=== PATIENT | female | born 1975 | race Caucasian/White ===

== ENCOUNTER 2017-07-24 17:45 | Emergency (ER) | payer OTHER, MEDICAID ==
[2017-07-24] MEDS ORDERED: ULTRAM PO ONE (20:54)
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
[2017-07-24 22:38] VITALS: BP 147/98
== END 2017-07-24 22:20 | disposition home or self-care (01) ==
LOC: ED 17:45
DX: S16.1XXA Strain of muscle, fascia and tendon at neck level, initial encounter (principal); V49.49XA Driver injured in collision with other motor vehicles in traffic accident, initial encounter; Y93.9 Activity, unspecified; Y92.9 Unspecified place or not applicable; Y99.9 Unspecified external cause status
CPT/HCPCS: 72040

== ENCOUNTER 2018-08-05 08:24 | Emergency (ER) | payer MEDICAID, OTHER ==
[2018-08-05 08:29] VITALS: BP 151/98
[2018-08-05] MEDS ORDERED: MOTRIN PO ONE (08:39)
--- NOTE | 2018-08-05 08:48 | Emergency Department Report ---
ED Lower Extremity HPI - General Chief Complaint: Extremity Injury, Lower Stated Complaint: BOTTOM FOOT PAIN Time Seen by Provider: 08/05/18 08:39 Source: patient Mode of arrival: Ambulatory Limitations: No Limitations - History of Present Illness Initial Comments: This is a 42-year-old female nontoxic, well nourished in appearance, no acute signs of distress presents to the ED with c/o of right plantar foot pain 2 days. 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 Patient denies any trauma. Patient denies any numbness, tingling, fever, chills, nausea, vomiting, chest pain, shortness of breath, headache, stiff neck. Patient denies any joint swelling or joint redness. Patient denies decreased range of motion. Patient stated has decreased gait due to pain. Patient denies any allergies or significant past medical history. MD Complaint: foot injury -: days(s) (2) Injury: Foot: Right Place: work Severity: mild Severity scale (0 -10): 3 Improves With: immobilization Worsens With: palpation Associated Symptoms: ambulatory. denies: snap/pop sensation, swelling, numbness , tingling, unable to bear weight, able to partially bear weight - Related Data Home Medications Medication Instructions Recorded Confirmed Last Taken Acetaminophen [Tylenol] 325 mg MO Q4HR PRN 09/01/13 09/01/13 Unknown Ibuprofen [Motrin] 200 mg PO Q6H PRN 09/01/13 09/01/13 Unknown Sulfamethoxazole/Trimethoprim 1 each PO BID 09/01/13 09/01/13 Unknown [Bactrim DS] Previous Rx's Medication Instructions Recorded Last Taken Type Cyclobenzaprine [Flexeril] 10 mg PO TID PRN #30 tablet 07/24/17 Unknown Rx Naproxen [Naprosyn] 500 mg PO BID PRN #30 tablet 07/24/17 Unknown Rx Ibuprofen [Motrin] 600 mg PO Q8H PRN #30 tablet 08/05/18 Unknown Rx Allergies Allergy/AdvReac Type Severity Reaction Status Date / Time No Known Allergies Allergy Verified 08/05/18 08:28 ED Review of Systems ROS: Stated complaint: BOTTOM FOOT PAIN Other details as noted in HPI Constitutional: denies: chills, fever Eyes: denies: eye pain, eye discharge, vision change ENT: denies: ear pain, throat pain Respiratory: denies: cough, shortness of breath, wheezing Cardiovascular: denies: chest pain, palpitations Endocrine: no symptoms reported Gastrointestinal: denies: abdominal pain, nausea, diarrhea Genitourinary: denies: urgency, dysuria, discharge Musculoskeletal: denies: back pain, joint swelling, arthralgia Skin: denies: rash, lesions Neurological: denies: headache, weakness, paresthesias Psychiatric: denies: anxiety, depression Hematological/Lymphatic: denies: easy bleeding, easy bruising ED Past Medical Hx - Past Medical History Previous Medical History?: Yes Hx Psychiatric Treatment: Yes (schizophrenia) - Surgical History Past Surgical History?: No - Social History Smoking Status: Never Smoker Substance Use Type: None - Medications Home Medications: Home Medications Medication Instructions Recorded Confirmed Last Taken Type Acetaminophen [Tylenol] 325 mg MO Q4HR PRN 09/01/13 09/01/13 Unknown History Ibuprofen [Motrin] 200 mg PO Q6H PRN 09/01/13 09/01/13 Unknown History Sulfamethoxazole/Trimethoprim 1 each PO BID 09/01/13 09/01/13 Unknown History [Bactrim DS] Cyclobenzaprine [Flexeril] 10 mg PO TID PRN #30 tablet 07/24/17 Unknown Rx Naproxen [Naprosyn] 500 mg PO BID PRN #30 tablet 07/24/17 Unknown Rx Ibuprofen [Motrin] 600 mg PO Q8H PRN #30 tablet 08/05/18 Unknown Rx ED Physical Exam - General Limitations: No Limitations General appearance: alert, in no apparent distress - Head Head exam: Present: atraumatic, normocephalic - Eye Eye exam: Present: normal appearance - ENT ENT exam: Present: mucous membranes moist - Neck Neck exam: Present: normal inspection - Respiratory Respiratory exam: Present: normal lung sounds bilaterally. Absent: respiratory distress - Cardiovascular Cardiovascular Exam: Present: regular rate, normal rhythm. Absent: systolic murmur, diastolic murmur, rubs, gallop - GI/Abdominal GI/Abdominal exam: Present: soft, normal bowel sounds - Extremities Exam Extremities exam: Present: normal inspection, full ROM, tenderness, normal capillary refill. Absent: joint swelling - Expanded Lower Extremity Exam Right Hip exam: Present: normal inspection, full ROM. Absent: tenderness, swelling Upper Leg exam: Present: normal inspection, full ROM. Absent: tenderness, swelling Knee exam: Present: normal inspection, full ROM. Absent: tenderness, swelling Lower Leg exam: Present: normal inspection, full ROM. Absent: tenderness, swelling Ankle exam: Present: normal inspection, full ROM. Absent: tenderness, swelling Foot/Toe exam: Present: normal inspection, full ROM, tenderness. Absent: swelling, abrasion, laceration, ecchymosis, deformity, crepidus, dislocation, erythema, amputation, puncture wound, foreign body, calcaneal tenderness, tenderness at base of 5th metatarsal, nail avulsion, subungual hematoma Neuro vascular tendon exam: Present: no vascular compromise. Absent: pulse deficit, abnormal cap refill, motor deficit, sensory deficit, tendon deficit, extremity cold to touch, pallor, abnormal 2-point discrimination, decreased fine /light touch, foot drop, peroneal nerve deficit, significant pain with passive ROM of distal joint Gait: Positive: observed and normal 1 - pain here - Back Exam Back exam: Present: normal inspection, full ROM - Neurological Exam Neurological exam: Present: alert, oriented X3, normal gait - Psychiatric Psychiatric exam: Present: normal affect, normal mood - Skin Skin exam: Present: warm, dry, intact, normal color. Absent: rash ED Course Vital Signs 08/05/18 08:28 Temperature 98.9 F Pulse Rate 88 Respiratory 16 Rate Blood Pressure 151/98 O2 Sat by Pulse 98 Oximetry - Reevaluation(s) Reevaluation #1: 08/05/18 08:46 Patient is speaking in full sentences with no signs of distress noted. ED Lower Extremity MDM - Medical Decision Making This is a 42-year-old female that presents with right plantar fasciitis. Patient is stable and was examined by me. I referred patient to an orthopedic doctor for further evaluation for possible MRI. X-ray has been obtained and dictated by the radiologist. Patient is notified of the x-ray report with noted by the patient. Patient does have normal gait with no tenderness and no joint swelling. No ecchymosis. no joint redness or swelling. Not warm to touch. No signs of cellulites present. Patient was instructed to RICE therapy. Patient received Motrin for pain. Patient is discharged with Motrin. At time of discharge, the patient does not seem toxic or ill in appearance. No acute signs of distress noted. Patient agrees to discharge treatment plan of care. No further questions noted by the patient. Critical care attestation.: If time is entered above; I have spent that time in minutes in the direct care of this critically ill patient, excluding procedure time. ED Disposition Clinical Impression: Plantar fasciitis, right Disposition: [id number]-01 TO HOME OR SELFCARE Is pt being admited?: No Does the pt Need Aspirin: No Condition: Stable Instructions: Plantar Fasciitis (ED), RICE Therapy (ED) Additional Instructions: Follow-up with a orthopedic doctor in 3-5 days or if symptoms worsen and continue return to emergency room as soon as possible. Prescriptions: Ibuprofen [Motrin] 600 mg PO Q8H PRN #30 tablet PRN Reason: Pain Referrals: PRIMARY CAREMD [Primary Care Provider] - 3-5 Days KIKE VENTURA MD [Staff Physician] - 3-5 Days [facility] [Outside] - 3-5 Days Forms: Work/School Release Form(ED)
--- NOTE | 2018-08-05 09:18 | XRay Report ---
RIGHT FOOT, 3 views: History: Right foot pain. The bony architecture is intact. Bony alignment is normal. No soft tissue abnormalities are seen. The joint spaces appear preserved. A moderate plantar spur is identified. IMPRESSION: Plantar spur.
== END 2018-08-05 09:38 | disposition home or self-care (01) ==
LOC: ED 08:24
DX: M72.2 Plantar fascial fibromatosis (principal); F20.9 Schizophrenia, unspecified
CPT/HCPCS: 99283

== ENCOUNTER 2019-06-23 11:18 | Emergency (ER) | payer MEDICAID ==
[2019-06-23 11:27] VITALS: BP 164/89
--- NOTE | 2019-06-23 11:30 | Emergency Department Report ---
ED Extremity Problem HPI - General Chief complaint: Pain General Stated complaint: PAIN ON SIDE/LEGS Time Seen by Provider: 06/23/19 11:24 Source: patient Mode of arrival: Ambulatory Limitations: No Limitations - History of Present Illness Initial comments: pt is a 43 yo female who presents with right upper arm pain and left posterior pain that began two weeks ago. 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 she denies any fall or injury. denies any previous injury. denies any numbness or weakness. she denies any other symptoms. has been taking tylenol with some relief. PMHx schizophrenia. no allergies to medications. no SI, HI, no hallucinations. - Related Data Home Medications Medication Instructions Recorded Confirmed Last Taken Acetaminophen [Tylenol] 325 mg NE Q4HR PRN 09/01/13 09/01/13 Unknown Ibuprofen [Motrin] 200 mg PO Q6H PRN 09/01/13 09/01/13 Unknown Sulfamethoxazole/Trimethoprim 1 each PO BID 09/01/13 09/01/13 Unknown [Bactrim DS] Previous Rx's Medication Instructions Recorded Last Taken Type Cyclobenzaprine [Flexeril] 10 mg PO TID PRN #30 tablet 07/24/17 Unknown Rx Ibuprofen [Motrin] 600 mg PO Q8H PRN #30 tablet 08/05/18 Unknown Rx Naproxen [Naprosyn TAB] 500 mg PO BID PRN #14 tablet 06/23/19 Unknown Rx Allergies Allergy/AdvReac Type Severity Reaction Status Date / Time No Known Allergies Allergy Verified 06/23/19 11:19 ED Review of Systems ROS: Stated complaint: PAIN ON SIDE/LEGS Other details as noted in HPI Comment: All other systems reviewed and negative ED Past Medical Hx - Past Medical History Hx Psychiatric Treatment: Yes (schizophrenia) - Social History Smoking Status: Never Smoker Substance Use Type: None - Medications Home Medications: Home Medications Medication Instructions Recorded Confirmed Last Taken Type Acetaminophen [Tylenol] 325 mg NE Q4HR PRN 09/01/13 09/01/13 Unknown History Ibuprofen [Motrin] 200 mg PO Q6H PRN 09/01/13 09/01/13 Unknown History Sulfamethoxazole/Trimethoprim 1 each PO BID 09/01/13 09/01/13 Unknown History [Bactrim DS] Cyclobenzaprine [Flexeril] 10 mg PO TID PRN #30 tablet 07/24/17 Unknown Rx Ibuprofen [Motrin] 600 mg PO Q8H PRN #30 tablet 08/05/18 Unknown Rx Naproxen [Naprosyn TAB] 500 mg PO BID PRN #14 tablet 06/23/19 Unknown Rx ED Physical Exam - General Limitations: No Limitations General appearance: alert, in no apparent distress - Head Head exam: Present: atraumatic, normocephalic - Eye Eye exam: Present: normal appearance - ENT ENT exam: Present: mucous membranes moist - Respiratory Respiratory exam: Present: normal lung sounds bilaterally. Absent: respiratory distress, wheezes, rales, rhonchi, stridor, accessory muscle use, decreased breath sounds, prolonged expiratory - Cardiovascular Cardiovascular Exam: Present: regular rate, normal rhythm, normal heart sounds. Absent: systolic murmur, diastolic murmur, rubs, gallop - Extremities Exam Extremities exam: Present: other (FROM of the BUE with no difficulty, 2+ radial pulse, sensation intact, mild TTP of the right bicep, no ecchymosis, full flexion without difficulty, FROM of the BLE without difficulty, 2+ distal pulses, sensation intact, mild TTP of the left posterior thigh directly distal to the left gluteus arely, no edema of the BLE, no erythema, no increased warmth) - Neurological Exam Neurological exam: Present: alert, oriented X3 - Psychiatric Psychiatric exam: Present: normal affect, normal mood - Skin Skin exam: Present: warm, dry, intact ED Course Vital Signs 06/23/19 11:24 Temperature 98.7 F Pulse Rate 84 Respiratory 18 Rate Blood Pressure 164/89 O2 Sat by Pulse 98 Oximetry ED Medical Decision Making - Medical Decision Making pt is a 43 yo female who presents with right upper arm pain and left posterior pain that began two weeks ago. 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 she denies any fall or injury. denies any previous injury. denies any numbness or weakness. she denies any other symptoms. has been taking tylenol with some relief. PMHx schizophrenia. no allergies to medications. no SI, HI, no hallucinations. on exam: FROM of the BUE with no difficulty, 2+ radial pulse, sensation intact, mild TTP of the right bicep, no ecchymosis, full flexion without difficulty, FROM of the BLE without difficulty, 2+ distal pulses, sensation intact, mild TTP of the left posterior thigh directly distal to the left gluteus arely, no edema of the BLE, no erythema, no increased warmth. pt given prescription for naproxen. advised pt to please take medication as prescribed as needed. may use ice, rest, heating pad, epsom salt bath. follow up with a primary care clinic in the next 2-3 days. return to the emergency room for any new or worsening symptoms. - Differential Diagnosis arthritis, muscle aches, strain, sprain Critical care attestation.: If time is entered above; I have spent that time in minutes in the direct care of this critically ill patient, excluding procedure time. ED Disposition Clinical Impression: Right arm pain, Left thigh pain Disposition: TO HOME OR SELFCARE Is pt being admited?: No Does the pt Need Aspirin: No Condition: Stable Instructions: Arthralgia (ED) Additional Instructions: please take medication as prescribed as needed. may use ice, rest, heating pad, epsom salt bath. follow up with a primary care clinic in the next 2-3 days. return to the emergency room for any new or worsening symptoms. Prescriptions: Naproxen [Naprosyn TAB] 500 mg PO BID PRN #14 tablet PRN Reason: Pain Referrals: ALISON KENDRICK [Primary Care Provider] - 3-5 Days Forms: Work/School Release Form(ED) Time of Disposition: 11:55 Print Language: CROATIAN
== END 2019-06-23 12:04 | disposition home or self-care (01) ==
LOC: ED 11:18
DX: M79.621 Pain in right upper arm (principal); M79.645 Pain in left finger(s); F20.9 Schizophrenia, unspecified; Z79.1 Long term (current) use of non-steroidal anti-inflammatories (NSAID); Z79.899 Other long term (current) drug therapy; X50.0XXA Overexertion from strenuous movement or load, initial encounter; Y93.89 Activity, other specified; Y92.69 Other specified industrial and construction area as the place of occurrence of the external cause; Y99.8 Other external cause status
CPT/HCPCS: 99282

== ENCOUNTER 2020-02-16 11:04 | Emergency (ER) | payer MEDICAID ==
[2020-02-16 11:20] VITALS: BP 145/101
--- NOTE | 2020-02-16 11:57 | XRay Report ---
RIGHT HAND HISTORY: Trauma and pain. COMPARISON: None. TECHNIQUE: 2 views of the right hand were obtained. FINDINGS: Bones: A comminuted mildly displaced fracture of the proximal diaphysis of the fourth metacarpal. Joint spaces: Maintained. Soft tissues: No significant abnormality. Additional findings: None. IMPRESSION: 1. An acute traumatic closed mildly displaced comminuted fracture of the fourth metacarpal. Signer Name: Satish Diaz MD Signed: 02/16/2020 11:52 AM Workstation Name: [id number]
[2020-02-16] MEDS ORDERED: IBUPROFEN 800 MG TAB PO ONE (14:38)
--- NOTE | 2020-02-16 15:29 | Emergency Department Report ---
ED Upper Extremity Inj HPI - General Chief Complaint: Extremity Injury, Upper Stated Complaint: SWOLLEN/PAIN HAND Time Seen by Provider: 02/16/20 12:43 Source: patient Mode of arrival: Ambulatory Limitations: No Limitations - History of Present Illness Initial Comments: This is a 44-year-old female nontoxic, well nourished in appearance, no acute signs of distress presents to the ED with c/o of right hand pain 1 day. Patient stated that she hit a chair. Patient denies any other trauma. Patient denies any numbness, tingling, fever, chills, nausea, vomiting, chest pain, shortness of breath, headache, stiff neck. Patient denies any joint swelling or joint redness. Patient has some decreased range of motion. Patient denies any allergies or significant past medical history. MD Complaint: Injury to:: right, hand -: days(s) Other Extremity Injury: Hand: Right Severity scale (0 -10): 8 Improves With: immobilization Worsens With: movement of extremity Associated Symptoms: denies other symptoms. denies: weakness, numbness, neck pain, suspects foreign body, nausea/vomiting, heard/felt popping sensat - Related Data Home Medications Medication Instructions Recorded Confirmed Last Taken Acetaminophen [Tylenol] 325 mg [place] Q4HR PRN 09/01/13 09/01/13 Unknown Ibuprofen [Motrin] 200 mg PO Q6H PRN 09/01/13 09/01/13 Unknown Sulfamethoxazole/Trimethoprim 1 each PO BID 09/01/13 09/01/13 Unknown [Bactrim DS] Previous Rx's Medication Instructions Recorded Last Taken Type Cyclobenzaprine [Flexeril] 10 mg PO TID PRN #30 tablet 07/24/17 Unknown Rx Ibuprofen [Motrin] 600 mg PO Q8H PRN #30 tablet 08/05/18 Unknown Rx Naproxen [Naprosyn TAB] 500 mg PO BID PRN #14 tablet 06/23/19 Unknown Rx Ibuprofen [Motrin] 600 mg PO Q8H PRN #15 tablet 02/16/20 Unknown Rx Allergies Allergy/AdvReac Type Severity Reaction Status Date / Time No Known Allergies Allergy Verified 06/23/19 11:19 ED Review of Systems ROS: Stated complaint: SWOLLEN/PAIN HAND Other details as noted in HPI Constitutional: denies: chills, fever Eyes: denies: eye pain, eye discharge, vision change ENT: denies: ear pain, throat pain Respiratory: denies: cough, shortness of breath, wheezing Cardiovascular: denies: chest pain, palpitations Endocrine: no symptoms reported Gastrointestinal: denies: abdominal pain, nausea, diarrhea Genitourinary: denies: urgency, dysuria, discharge Musculoskeletal: denies: back pain, joint swelling, arthralgia Skin: denies: rash, lesions Neurological: denies: headache, weakness, paresthesias Psychiatric: denies: anxiety, depression Hematological/Lymphatic: denies: easy bleeding, easy bruising ED Past Medical Hx - Past Medical History Previous Medical History?: Yes Hx Psychiatric Treatment: Yes (schizophrenia) - Surgical History Past Surgical History?: No - Social History Smoking Status: Never Smoker Substance Use Type: None - Medications Home Medications: Home Medications Medication Instructions Recorded Confirmed Last Taken Type Acetaminophen [Tylenol] 325 mg [place] Q4HR PRN 09/01/13 09/01/13 Unknown History Ibuprofen [Motrin] 200 mg PO Q6H PRN 09/01/13 09/01/13 Unknown History Sulfamethoxazole/Trimethoprim 1 each PO BID 09/01/13 09/01/13 Unknown History [Bactrim DS] Cyclobenzaprine [Flexeril] 10 mg PO TID PRN #30 tablet 07/24/17 Unknown Rx Ibuprofen [Motrin] 600 mg PO Q8H PRN #30 tablet 08/05/18 Unknown Rx Naproxen [Naprosyn TAB] 500 mg PO BID PRN #14 tablet 06/23/19 Unknown Rx Ibuprofen [Motrin] 600 mg PO Q8H PRN #15 tablet 02/16/20 Unknown Rx ED Physical Exam - General Limitations: No Limitations General appearance: alert, in no apparent distress - Head Head exam: Present: atraumatic, normocephalic - Extremities Exam Extremities exam: Present: normal inspection, full ROM, tenderness, normal capillary refill. Absent: joint swelling - Expanded Upper Extremity Exam Right General: Present: normal inspection Shoulder Exam: Present: normal inspection, full ROM. Absent: tenderness, swelling Upper Arm exam: Present: normal inspection, full ROM. Absent: tenderness, swelling Elbow exam: Present: normal inspection, full ROM. Absent: tenderness, swelling Forearm Wrist exam: Present: normal inspection, full ROM. Absent: tenderness, swelling, abrasion, laceration, ecchymosis, deformity, crepidus, dislocation, erythema, tenderness over anatomical snuff box, pain with axial thumb loading Hand Wrist exam: Present: normal inspection, full ROM, tenderness, swelling, ecchymosis. Absent: abrasion, laceration, deformity, crepidus, dislocation, erythema, amputation, nail avulsion, subungual hematoma Vascular: Present: vascular compromise, normal capillary refill - Back Exam Back exam: Present: normal inspection, full ROM. Absent: tenderness, CVA tenderness (R), CVA tenderness (L), muscle spasm, paraspinal tenderness, vertebral tenderness, rash noted - Neurological Exam Neurological exam: Present: alert, oriented X3, normal gait - Psychiatric Psychiatric exam: Present: normal affect, normal mood - Skin Skin exam: Present: warm, dry, intact, normal color. Absent: rash ED Course Vital Signs 02/16/20 11:17 Temperature 97.6 F Pulse Rate 81 Respiratory 18 Rate Blood Pressure 145/101 O2 Sat by Pulse 99 Oximetry - Reevaluation(s) Reevaluation #1: 02/16/20 15:35 Patient is speaking in full sentences with no signs of distress noted. ED Medical Decision Making - Medical Decision Making This is a 44-year-old female that presents with right fourth metacarpal fracture. Patient is stable and was examined by me. I referred patient to an orthopedic doctor for further evaluation for possible MRI. X-ray has been obtained and dictated by the radiologist. Patient is notified of the x-ray report with noted by the patient. Patient received a right ulnar gutter splint. Patient also received a sling. Post splint assessment: neurovasular intact; normal cap refill <2 second; normal sensation; denies decreaed sensation; normal ROM of digits. Patient was instructed to RICE therapy. Patient received Motrin for pain. Patient is discharged with Motrin. At time of discharge, the patient does not seem toxic or ill in appearance. No acute signs of distress noted. Patient agrees to discharge treatment plan of care. No further questions noted by the patient. Critical care attestation.: If time is entered above; I have spent that time in minutes in the direct care of this critically ill patient, excluding procedure time. ED Disposition Clinical Impression: Fracture of fourth metacarpal bone of right hand Qualifiers: Encounter type: initial encounter Fracture type: closed Metacarpal location: unspecified portion of metacarpal Fracture alignment: displaced Qualified Code(s): S62.304A - Unspecified fracture of fourth metacarpal bone, right hand, initial encounter for closed fracture Disposition: TO HOME OR SELFCARE Is pt being admited?: No Does the pt Need Aspirin: No Condition: Stable Instructions: Hand Fracture (ED), RICE Therapy (ED) Additional Instructions: Follow-up with a orthopedic doctor in 3-5 days or if symptoms worsen and continue return to emergency room as soon as possible. Prescriptions: Ibuprofen [Motrin] 600 mg PO Q8H PRN #15 tablet PRN Reason: Pain Referrals: PRIMARY CAREMD [Referring] - 3-5 Days KIKE VENTURA MD [Staff Physician] - 3-5 Days [facility] [Provider Group] - 3-5 Days Forms: Work/School Release Form(ED)
== END 2020-02-16 16:12 | disposition home or self-care (01) ==
LOC: ED 11:04
DX: S62.304A Unspecified fracture of fourth metacarpal bone, right hand, initial encounter for closed fracture (principal); F20.9 Schizophrenia, unspecified; Z79.899 Other long term (current) drug therapy; W22.8XXA Striking against or struck by other objects, initial encounter; Y93.89 Activity, other specified; Y92.89 Other specified places as the place of occurrence of the external cause; Y99.8 Other external cause status

== ENCOUNTER 2020-09-14 10:27 | Emergency (ER) | payer MEDICAID ==
[2020-09-14 10:40] VITALS: BP 155/89
--- NOTE | 2020-09-14 10:46 | Event Note ---
ED Screening Note Date of service: 09/14/20 Time: 10:45 ED Screening Note: Patient complains of left-sided chest pain x9 days Denies heart history History of schizophrenia This initial assessment/diagnostic orders/clinical plan/treatment(s) is/are subject to change based on patients health status, clinical progression and re- assessment by fellow clinical providers in the ED. Further treatment and workup at subsequent clinical providers discretion. Patient/guardian urged not to elope from the ED as their condition may be serious if not clinically assessed and managed. Initial orders include: Chest x-ray EKG Labs
--- NOTE | 2020-09-14 11:30 | XRay Report ---
CHEST 2 VIEWS INDICATION / CLINICAL INFORMATION: Chest Pain. COMPARISON: None available. FINDINGS: SUPPORT DEVICES: None. HEART / MEDIASTINUM: No significant abnormality. LUNGS / PLEURA: No significant pulmonary or pleural abnormality. No pneumothorax. ADDITIONAL FINDINGS: No significant additional findings. IMPRESSION: 1. No acute findings. Signer Name: Abe Cottrell MD Signed: 09/14/2020 11:25 AM Workstation Name: [id number]
[2020-09-14 13:37] LABS: Basophils # (Auto) 0.1 K/mm3 (0.0-0.1); Basophils % (Auto) 0.9 % (0.0-1.8); Eosinophils # (Auto) 0.1 K/mm3 (0.0-0.4); Eosinophils % (Auto) 1.1 % (0.0-4.3); Hematocrit 39.6 % (30.3-42.9); Hemoglobin 12.8 gm/dl (10.1-14.3); Lymphocytes # (Auto) 2.1 K/mm3 (1.2-5.4); Lymphocytes % (Auto) 32.1 % (13.4-35.0); Mean Corpuscular HGB Conc 32 % (30-34); Mean Corpuscular Volume 94 fl (79-97); Monocytes # (Auto) 0.4 K/mm3 (0.0-0.8); Monocytes % (Auto) 6.2 % (0.0-7.3); Platelet Count 281 K/mm3 (140-440); Red Blood Count 4.23 M/mm3 (3.65-5.03); Red Cell Distribution Width 14.1 % (13.2-15.2)
[2020-09-14 13:55] LABS: Alanine Aminotransferase 11 units/L (7-56); Albumin 4.3 g/dL (3.9-5); BUN/Creatinine Ratio 9; Blood Urea Nitrogen 8 mg/dL (7-17); Calcium 9.5 mg/dL (8.4-10.2); Hemolysis Index 11
[2020-09-14] MEDS ORDERED: ALUM-MAG HYDROXIDE-SIMETHICONE 200-200-20MG/5ML ORAL LIQD 30 ML PO ONE (20:00)
[2020-09-14] MEDS ORDERED: IBUPROFEN 800 MG TAB PO ONE (20:00)
[2020-09-14] MEDS ORDERED: LIDOCAINE VISCOUS 2% 15 ML ORAL LIQD PO ONE (20:00)
--- NOTE | 2020-09-14 21:04 | Emergency Department Report ---
ED Chest Pain HPI - General Chief Complaint: Chest Pain Stated Complaint: CHEST PAIN COMES AND GOES Time Seen by Provider: 09/14/20 10:45 Source: patient Mode of arrival: Ambulatory Limitations: No Limitations - History of Present Illness Initial Comments: Patient 44-year-old -[place] female who presents for left lateral chest wall pain x4 days intermittently. Patient denies dizziness, headache, nausea vomiting, shortness of breath, wheezing, patient denies history of cardiac disease. Patient does have history of obesity and schizophrenia. Pain is described as 4/10. Pain exacerbated by palpation and movement. Pain is relieved by nothing tried. Patient denies smoking or other risk factors. MD Complaint: chest pain Severity scale (0 -10): 3 - Related Data Home Medications Medication Instructions Recorded Confirmed Last Taken Acetaminophen [Tylenol] 325 mg [place] Q4HR PRN 09/01/13 09/01/13 Unknown Ibuprofen [Motrin] 200 mg PO Q6H PRN 09/01/13 09/01/13 Unknown Sulfamethoxazole/Trimethoprim 1 each PO BID 09/01/13 09/01/13 Unknown [Bactrim DS] Previous Rx's Medication Instructions Recorded Last Taken Type Cyclobenzaprine [Flexeril] 10 mg PO TID PRN #30 tablet 07/24/17 Unknown Rx Ibuprofen [Motrin] 600 mg PO Q8H PRN #30 tablet 08/05/18 Unknown Rx Naproxen [Naprosyn TAB] 500 mg PO BID PRN #14 tablet 06/23/19 Unknown Rx Ibuprofen [Motrin] 600 mg PO Q8H PRN #15 tablet 02/16/20 Unknown Rx Famotidine [Pepcid] 20 mg PO BID #30 tablet 09/14/20 Unknown Rx Ibuprofen [Motrin 800 MG tab] 800 mg PO Q8HR PRN #30 tablet 09/14/20 Unknown Rx Allergies Allergy/AdvReac Type Severity Reaction Status Date / Time No Known Allergies Allergy Verified 06/23/19 11:19 Heart Score - HEART Score History: Slightly suspicious EKG: Normal Age: 45-65 Risk factors: No known risk factors Troponin: < normal limit HEART Score: 1 ED Review of Systems ROS: Stated complaint: CHEST PAIN COMES AND GOES Other details as noted in HPI Constitutional: denies: chills, fever Eyes: denies: eye pain, eye discharge, vision change ENT: denies: ear pain, throat pain Respiratory: denies: cough, shortness of breath, wheezing Cardiovascular: chest pain. denies: palpitations Endocrine: no symptoms reported Gastrointestinal: denies: abdominal pain, nausea, diarrhea Genitourinary: denies: urgency, dysuria, discharge Musculoskeletal: denies: back pain, joint swelling, arthralgia Skin: denies: rash, lesions Neurological: denies: headache, weakness, paresthesias Psychiatric: denies: anxiety, depression Hematological/Lymphatic: denies: easy bleeding, easy bruising ED Past Medical Hx - Past Medical History Previous Medical History?: Yes Hx Psychiatric Treatment: Yes (schizophrenia) - Surgical History Past Surgical History?: No - Social History Smoking Status: Never Smoker Substance Use Type: None - Medications Home Medications: Home Medications Medication Instructions Recorded Confirmed Last Taken Type Acetaminophen [Tylenol] 325 mg NV Q4HR PRN 09/01/13 09/01/13 Unknown History Ibuprofen [Motrin] 200 mg PO Q6H PRN 09/01/13 09/01/13 Unknown History Sulfamethoxazole/Trimethoprim 1 each PO BID 09/01/13 09/01/13 Unknown History [Bactrim DS] Cyclobenzaprine [Flexeril] 10 mg PO TID PRN #30 tablet 07/24/17 Unknown Rx Ibuprofen [Motrin] 600 mg PO Q8H PRN #30 tablet 08/05/18 Unknown Rx Naproxen [Naprosyn TAB] 500 mg PO BID PRN #14 tablet 06/23/19 Unknown Rx Ibuprofen [Motrin] 600 mg PO Q8H PRN #15 tablet 02/16/20 Unknown Rx Famotidine [Pepcid] 20 mg PO BID #30 tablet 09/14/20 Unknown Rx Ibuprofen [Motrin 800 MG tab] 800 mg PO Q8HR PRN #30 tablet 09/14/20 Unknown Rx ED Physical Exam - General Limitations: No Limitations General appearance: alert, in no apparent distress - Head Head exam: Present: atraumatic, normocephalic - Eye Eye exam: Present: normal appearance, EOMI Pupils: Present: normal accommodation - ENT ENT exam: Present: mucous membranes moist - Neck Neck exam: Present: normal inspection - Respiratory Respiratory exam: Present: normal lung sounds bilaterally, chest wall tenderness (left lateral chest wall tenderness to deep palpation, no crepitus no erythema or ecchymosis, ). Absent: respiratory distress, wheezes, stridor - Cardiovascular Cardiovascular Exam: Present: regular rate, normal rhythm, normal heart sounds. Absent: systolic murmur, diastolic murmur, rubs, gallop - GI/Abdominal GI/Abdominal exam: Present: soft, normal bowel sounds. Absent: distended, tenderness, guarding, rebound, rigid, bruit, hernia - Rectal Rectal exam: Present: deferred - Extremities Exam Extremities exam: Present: normal inspection, full ROM, normal capillary refill. Absent: tenderness, pedal edema - Back Exam Back exam: Present: normal inspection, full ROM. Absent: tenderness, CVA tenderness (R), CVA tenderness (L) - Neurological Exam Neurological exam: Present: alert, oriented X3, CN II-XII intact, normal gait - Psychiatric Psychiatric exam: Present: normal affect, normal mood. Absent: homicidal ideation, suicidal ideation - Skin Skin exam: Present: warm, dry, intact, normal color. Absent: rash ED Course Vital Signs 09/14/20 10:37 Temperature 98.9 F Pulse Rate 88 Respiratory 18 Rate Blood Pressure 155/89 [Right] O2 Sat by Pulse 99 Oximetry IMELDA score - Imelda Score Age > 65: (0) No Aspirin use within the Past 7 Days: (0) No 3 or more CAD Risk Factors: (0) No 2 or more Angina events in past 24 hrs: (0) No Known CAD with more than 50% Stenosis: (0) No Elevated Cardiac Markers: (0) No ST Deviation Greater than 0.5mm: (0) No IMELDA Score: 0 ED Medical Decision Making - Lab Data Result diagrams: 09/14/20 13:04 09/14/20 13:04 Labs 09/14/20 09/14/20 09/14/20 13:04 13:04 18:18 WBC 6.4 RBC 4.23 Hgb 12.8 Hct 39.6 MCV 94 MCH 30 MCHC 32 RDW 14.1 Plt Count 281 Lymph % (Auto) 32.1 Ramsey % (Auto) 6.2 Eos % (Auto) 1.1 Baso % (Auto) 0.9 Lymph # (Auto) 2.1 Ramsey # (Auto) 0.4 Eos # (Auto) 0.1 Baso # (Auto) 0.1 Seg Neutrophils % 59.7 Seg Neutrophils # 3.8 Sodium 142 Potassium 3.8 Chloride 106.4 Carbon Dioxide 23 Anion Gap 16 BUN 8 Creatinine 0.9 Estimated GFR > 60 BUN/Creatinine Ratio 9 Glucose 87 Calcium 9.5 Total Bilirubin 0.30 AST 13 ALT 11 Alkaline Phosphatase 64 Troponin T < 0.010 < 0.010 Total Protein 7.4 Albumin 4.3 Albumin/Globulin Ratio 1.4 - Radiology Data Radiology results: report reviewed, image reviewed Findings Reporting MD: Abe Cottrell Dictation Time: September 14, 2020 10:25 Short Goods Drier: Not available Metal Trim Erector Date: CHEST 2 VIEWS INDICATION / CLINICAL INFORMATION: Chest Pain. COMPARISON: None available. FINDINGS: SUPPORT DEVICES: None. HEART / MEDIASTINUM: No significant abnormality. LUNGS / PLEURA: No significant pulmonary or pleural abnormality. No pneumothorax. ADDITIONAL FINDINGS: No significant additional findings. IMPRESSION: 1. No acute findings. Signer Name: Abe Cottrell MD Signed: 09/14/2020 10:25 AM Workstation Name: [id number] - Medical Decision Making Heart score is 0 chest x-ray is normal no infiltrates no opacities, pain is relieved with medications given in ED. Plan DC to home with prescriptionscfoll ow-up with primary care in 2 to 3 days, pt verbalized agreement and understanding of discharge plan. Critical care attestation.: If time is entered above; I have spent that time in minutes in the direct care of this critically ill patient, excluding procedure time. ED Disposition Clinical Impression: Chest pain Qualifiers: Chest pain type: unspecified Qualified Code(s): R07.9 - Chest pain, unspecified Disposition: DC-01 TO HOME OR SELFCARE Is pt being admited?: No Does the pt Need Aspirin: No Condition: Stable Instructions: Chest Pain (ED), Nonspecific Chest Pain, Adult Prescriptions: Ibuprofen [Motrin 800 MG tab] 800 mg PO Q8HR PRN #30 tablet PRN Reason: pain Famotidine [Pepcid] 20 mg PO BID #30 tablet Referrals: ALISON KENDRICK [Primary Care Provider] - 3-5 Days Forms: Work/School Release Form(ED) Time of Disposition: 21:09
== END 2020-09-14 21:15 | disposition home or self-care (01) ==
LOC: ED 10:27
DX: R07.89 Other chest pain (principal); F20.9 Schizophrenia, unspecified; Z79.1 Long term (current) use of non-steroidal anti-inflammatories (NSAID); Z79.899 Other long term (current) drug therapy
CPT/HCPCS: 36415; 71046; 80053; 84484; 85025; 93005

== ENCOUNTER 2021-05-16 09:05 | Outpatient (CLI) | payer MEDICAID ==
--- NOTE | 2021-05-16 14:49 | Mammography Report ---
DIGITAL SCREENING MAMMOGRAM WITH CAD, 05/16/2021 CLINICAL INFORMATION / INDICATION: Routine screening mammography. SCREENING MAMMO TECHNIQUE: Digital bilateral 2D mammography was obtained in the craniocaudal and mediolateral obliqu e projections. This examination was interpreted with the benefit of Computer-Aided Detection analysis . COMPARISON: Baseline. FINDINGS: Breast Density: There are scattered areas of fibroglandular density. No dominant mass, suspicious calcifications, or architectural distortion in either breast. IMPRESSION: No mammographic evidence of malignancy. Follow up recommendation: Routine yearly BI-RADS Category 1: Negative. A "normal" or negative report should not discourage follow up or biopsy of a clinically significant f inding. A written summary of these findings will be mailed to the patient. The patient will be entered into a mammography reporting system which will generate a reminder letter for the patient's next appointmen t at the appropriate interval. The [employer] recommends yearly mammograms starting at age 40 and continuing as l urbano as a woman is in good health. Breast MRI is recommended for women with an approximate 20-25% or greater lifetime risk of breast cancer, including women with a strong family history of breast or ova dima cancer or who have been treated for Hodgkin's disease. Signer Name: Brett House MD Signed: 05/16/2021 2:44 PM Workstation Name: [id number]
== END 2021-05-16 09:06 | disposition home or self-care (01) ==
LOC: MAMMO 09:05
PROVIDERS: ATTEND Advanced Practice Midwife
DX: Z12.31 Encounter for screening mammogram for malignant neoplasm of breast (principal)
CPT/HCPCS: 77067

== ENCOUNTER 2021-08-26 17:12 | Emergency (ER) | payer MEDICAID ==
[2021-08-26] MEDS ORDERED: IBUPROFEN 800 MG TAB PO ONE (17:41)
--- NOTE | 2021-08-26 18:24 | Emergency Department Report ---
HPI - General Chief Complaint: Shoulder Injury Time Seen by Provider: 08/26/21 17:41 - HPI HPI: This is a 45-year-old -English female presents to the emergency department with a complaint of pain inside of the left armpit, right at the base of the arm. Overall this has been going on for 1 week. It worsens with movement of the left upper extremity and the patient says that it is keeping her from being able to do her job well. Patient also complains of other intermittent pains to the right armpit, bilateral knees, bilateral feet, that have been going on for months. The patient took Tylenol earlier today with some transient relief. Currently she says the pain in her left arm is 5 out of 10 in intensity. She denies any fever, skin color change, swelling, bleeding, drainage. Patient denies any past medical history. ED Past Medical Hx - Past Medical History Previous Medical History?: Yes Hx Psychiatric Treatment: Yes (schizophrenia) - Surgical History Past Surgical History?: No - Social History Smoking Status: Never Smoker Substance Use Type: None - Medications Home Medications: Home Medications Medication Instructions Recorded Confirmed Last Taken Type Acetaminophen [Tylenol] 325 mg [place] Q4HR PRN 09/01/13 09/01/13 Unknown History Ibuprofen [Motrin] 200 mg PO Q6H PRN 09/01/13 09/01/13 Unknown History Sulfamethoxazole/Trimethoprim 1 each PO BID 09/01/13 09/01/13 Unknown History [Bactrim DS] Cyclobenzaprine [Flexeril] 10 mg PO TID PRN #30 tablet 07/24/17 Unknown Rx Ibuprofen [Motrin] 600 mg PO Q8H PRN #30 tablet 08/05/18 Unknown Rx Naproxen [Naprosyn TAB] 500 mg PO BID PRN #14 tablet 06/23/19 Unknown Rx Ibuprofen [Motrin] 600 mg PO Q8H PRN #15 tablet 02/16/20 Unknown Rx Famotidine [Pepcid] 20 mg PO BID #30 tablet 09/14/20 Unknown Rx Ibuprofen [Motrin 800 MG tab] 800 mg PO Q8HR PRN #20 tablet 08/26/21 Unknown Rx ED Review of Systems ROS: Stated complaint: PAIN UNDER LFT ARM Other details as noted in HPI Comment: All other systems reviewed and negative Constitutional: denies: chills, fever Eyes: denies: eye pain, vision change ENT: denies: ear pain, throat pain Respiratory: denies: cough, shortness of breath Cardiovascular: denies: chest pain, palpitations Gastrointestinal: denies: abdominal pain, vomiting Genitourinary: denies: dysuria, discharge Musculoskeletal: arthralgia. denies: back pain Skin: denies: rash, lesions Neurological: denies: headache, weakness Physical Exam - Physical Exam Vital Signs: Vital Signs 08/26/21 17:51 Respiratory 15 Rate Physical Exam: GENERAL: The patient is well-developed well-nourished. HENT: Normocephalic. Atraumatic. Patient has moist mucous membranes. EYES: Extraocular motions are intact. NECK: Supple. Trachea is midline. CHEST/LUNGS: Clear to auscultation. There is no respiratory distress noted. HEART/CARDIOVASCULAR: Regular. There is no tachycardia. There is no murmur. ABDOMEN: Abdomen is soft, nontender. Patient has normal bowel sounds. SKIN: Skin is warm and dry. NEURO: The patient is awake, alert, and oriented. The patient is cooperative. Normal speech. MUSCULOSKELETAL: There is some tenderness to palpation inside the left axilla and to the posterior left shoulder. No obvious deformity. There is no limitation range of motion. Capillary refill less than 2 seconds and radial pulse +2/4 for the affected left upper extremity. ED Course Vital Signs 08/26/21 17:51 Respiratory 15 Rate ED Medical Decision Making - Radiology Data Radiology results: image reviewed interpreted by me: X-ray left shoulder does not show any fracture, dislocation, or any acute process. - Medical Decision Making Patient presents with a 1 week history of pain inside of the left armpit and at the base of the left upper extremity, almost to the posterior shoulder. I was able to reproduce the pain, but there is no obvious deformity. The patient appears neurovascularly intact. X-ray left shoulder does not show any fracture, dislocation, or any acute process. Patient also began asking about intermittent pains that she has in the bilateral knees, bilateral feet, but they are not affecting her currently. Patient was placed on NSAIDs and given outpatient referral for a local orthopedist. Critical Care Time: No Critical care attestation.: If time is entered above; I have spent that time in minutes in the direct care of this critically ill patient, excluding procedure time. ED Disposition Clinical Impression: Left axillary pain, Left arm pain Disposition: 01 HOME / SELF CARE / HOMELESS Is pt being admited?: No Condition: Stable Instructions: Shoulder Pain, Musculoskeletal Pain Additional Instructions: Please follow-up with your primary care physician in the next few days. I have given you a referral for a local orthopedist, Dr. Durán, to follow-up regarding your left arm pain, and your intermittent knee and feet pain. Return to the emergency department with any worsening of your symptoms, new or concerning symptoms not addressed during this current emergency department visit, or with any acute distress. Prescriptions: Ibuprofen [Motrin 800 MG tab] 800 mg PO Q8HR PRN #20 tablet PRN Reason: pain Referrals: KIKE DURÁN MD [Staff Physician] - 3-5 Days Time of Disposition: 18:36
--- NOTE | 2021-08-26 18:30 | XRay Report ---
LEFT SHOULDER 3 VIEW(S) INDICATION / CLINICAL INFORMATION: left shoulder pain COMPARISON: None available. FINDINGS: BONES / JOINT(S): No acute fracture or subluxation. No significant arthritis. SOFT TISSUES: No significant abnormality. ADDITIONAL FINDINGS: None. Signer Name: David Marley MD Signed: 08/26/2021 6:26 PM Workstation Name: [id number]
[2021-08-26 18:49] VITALS: BP 184/89
== END 2021-08-26 18:59 | disposition home or self-care (01) ==
LOC: ED 17:12
DX: M79.622 Pain in left upper arm (principal); F20.9 Schizophrenia, unspecified; Z98.890 Other specified postprocedural states; Z79.899 Other long term (current) drug therapy
CPT/HCPCS: 99283

== ENCOUNTER 2022-03-21 21:51 | Emergency (ER) | payer MEDICAID ==
[2022-03-21 22:16] VITALS: BP 156/83
== END 2022-03-22 02:40 | disposition left against medical advice (07) ==
LOC: ED 21:51
DX: M54.9 Dorsalgia, unspecified (principal); M79.672 Pain in left foot; M79.671 Pain in right foot; Z53.21 Procedure and treatment not carried out due to patient leaving prior to being seen by health care provider